=== PATIENT | female | born 1960 | race African-American/Black ===

== ENCOUNTER 2024-06-13 13:54 | Emergency (ER) | payer SELFPAY ==
[2024-06-13] VITALS (8 sets, daily range): BP systolic 123–180; BP diastolic 70–110
[~2024-06-13] VITALS: Ht 170.2 cm; Wt 45.0 kg
[~2024-06-13 13:54] MED LIST: GENOPTIC0.3 % OD; NAPROSYN500 MG OR; NO MEDS; [UNRECOGNIZED DRUG - OTHER] OR
[2024-06-13 15:21] LABS: BASO% 0.2 % (0-3); IMMATURE GRANULOCYTES 1.4 % (0.0-5.0); LYMPH% 41.2 % (15-41); MEAN CORPUSCULAR HGB 34.9 pG CALC (26.0-32.0); MEAN CORPUSCULAR HGB CONC 34.1 g/dL CAL (32.0-36.0); MONO% 13.2 % (2-13); NEUT# 2.54 thou/uL (2.00-7.15); RED BLOOD COUNT 5.19 mill/uL (4.20-5.60); RED CELL DISTRI WIDTH 15.5 % (11.5-15.5)
[2024-06-13 15:23] LABS: HEMATOCRIT 53.1 % (37.0-47.0); HEMOGLOBIN 18.1 g/dl (12.0-16.0); MEAN CELL VOLUME 102.3 fL CALC (80.0-100.0)
[2024-06-13 15:28] LABS: CREATININE 0.8 mg/dL (0.5-1.0); POTASSIUM 3.7 mmol/l (3.5-5.1); TOTAL PROTEIN 6.6 g/dL (6.3-8.2)
[2024-06-13 15:29] LABS: ALBUMIN 3.2 g/dL (3.2-5.0); BILIRUBIN, TOTAL 1.2 mg/dL (0.02-1.3)
[2024-06-13] MEDS ORDERED: SODIUM CHLORIDE 0.9% 1,000 ML IV ONE (16:10)
[2024-06-13 16:16] LABS: D-DIMER 0.88 mg/L (0.19-0.60); INTERNATIONAL NORMALIZED RATIO 1.1 RATIO (0.7-1.3)
[2024-06-13 16:20] LABS: PROTHROMBIN TIME 11.6 SECONDS (9.0-12.5)
[2024-06-13 16:57] LABS: URINE BLOOD DIPSTICK Trace-intact (NEGATIVE); URINE GLUCOSE - DIPSTICK Negative (NEGATIVE); URINE KETONE 15 mg/dL (NEGATIVE); URINE NITRITE - DIPSTICK Negative (Negative); URINE PH 5.5 (4.5-8.0); URINE PROTEIN - DIPSTICK 30 mg/dL (NEG-TRACE)
[2024-06-13 17:00] LABS: URINE COLOR Yellow; URINE LEUK ESTERASE Moderate (NEGATIVE)
[2024-06-13 17:10] LABS: URINE SQUAMOUS EPITHELIAL CELL MANY EPI/hpf (0-FEW)
[2024-06-13 17:13] LABS: URINE BACTERIA FEW hpf; URINE TRICHOMONAS FEW hpf
[2024-06-13 17:14] LABS: URINE HYALINE CAST MODERATE lpf (NONE-RARE)
[2024-06-13] MEDS ORDERED: ONDANSETRON HCl 4 MG/2 ML SDV IV ONE (17:25)
== END 2024-06-13 18:31 | disposition short-term general hospital (02) | DRG 440 ==
LOC: ED 13:54 → ED-I 17:04 → ED 18:31
PROVIDERS: Family Medicine
DX: K86.89 Other specified diseases of pancreas (principal); F17.200 Nicotine dependence, unspecified, uncomplicated; S00.81XA Abrasion of other part of head, initial encounter; X58.XXXA Exposure to other specified factors, initial encounter; Z20.822 Contact with and (suspected) exposure to COVID-19
CPT/HCPCS: J2405; Q9967